=== PATIENT | male | born 1960 | race Caucasian/White ===

== ENCOUNTER 2023-09-23 07:06 | Inpatient (IN) | payer OTHER ==
[2023-09-23 07:38] VITALS: BMI 33.5
[2023-09-23 08:46] LABS: BASO % 0.7 % (0-2.0); EOS % 6.1 % (0-4.5); HEMATOCRIT 41.4 % (35.4-49); HEMOGLOBIN 14.6 GM/dL (11.7-16.9); INR 1.05 (0.83-1.09); LYMPH % 19.9 % (8-40); MCH 35.2 pg (25.7-33.7); MCHC 35.4 g/dl (32.0-35.9); MEAN CELL VOLUME 99.5 fl (80-96); MEAN PLT VOLUME 8.1 fl (7.5-11.1); MONO % 10.2 % (3.8-10.2); NEUT % 63.1 % (42.8-82.8); PLATELET COUNT 203 10^3/uL (134-434); PROTHROMBIN TIME (PATIENT) 12.2 SEC (9.7-13.0); RBC 4.16 M/mm3 (4.00-5.60); RDW 13.1 % (11.9-15.9); WHITE BLOOD COUNT 9.1 K/mm3 (4.0-10.0)
[2023-09-23 08:49] LABS: ACTIVATED PTT 28.6 SECONDS (25.2-36.5)
[2023-09-23 08:59] LABS: POTASSIUM 4.1 mmol/L (3.5-5.1)
[2023-09-23 09:01] LABS: ALBUMIN 3.9 g/dl (3.4-5.0); CALCIUM 9.3 mg/dL (8.5-10.1)
[2023-09-23 09:02] LABS: BLOOD UREA NITROGEN 25.5 mg/dL (7-18)
[2023-09-23 09:05] LABS: CREATININE 1.4 mg/dL (0.55-1.3)
[2023-09-23 09:06] LABS: BILIRUBIN,TOTAL 1.9 mg/dL (0.2-1); TOT PROT 7.5 g/dl (6.4-8.2)
[2023-09-23] MEDS: SODIUM CHLORIDE 0.9% 500 ML INFUS.BAG IV ONE (09:48)
[2023-09-23] MEDS ORDERED: ceFAZolin SODIUM 1 GM VIAL ONE (11:15)
[2023-09-23] MEDS: CEFAZOLIN 1 GM in DEXTROSE 5%-WATER - 50 ML IVPB SCH (11:35)
[2023-09-23] MEDS ORDERED: ACETAMINOPHEN 325 MG TABLET (FP) PO PRN (16:50)
[2023-09-23] MEDS: LACTULOSE 20 GM/30 ML UDC (FOR ORAL USE ONLY) PO SCH (21:13)
[2023-09-23] MEDS: GABAPENTIN 100 MG CAPSULE PO PRN (21:13)
[2023-09-23] MEDS: ALPRAZolam 1 MG TABLET PO PRN (21:14)
[2023-09-23] MEDS: ROSUVASTATIN CA 5 MG TABLET PO SCH (21:14)
[2023-09-23] MEDS: INSULIN ASPART SLIDING SCALE (NOVOLOG) 1 VIAL SQ SCH (21:21)
[2023-09-23] MEDS: PIPERACILLIN/TAZOB 2.25 GM 2.25 GM in DEXTROSE 5%-WATER - 50 ML IVPB SCH (21:21)
[2023-09-23] MEDS ORDERED: INSULIN (NOVOLOG) ASPART 100 UNITS/ML 10ML VIAL ONE (22:53)
[2023-09-23 23:01] LABS: EPI CELLS 2 /uL (0-25.1); HYALINE CASTS 0 /uL (0-3.1); PH,URINE 5.5 (5.0-8.0); URINE APPEARANCE CLEAR; URINE BACTERIA 1 /uL (0-1359); URINE BILIRUBIN NEGATIVE (NEGATIVE); URINE COLOR YELLOW; URINE GLUCOSE (UA) NEGATIVE (NEGATIVE); URINE KETONE NEGATIVE (NEGATIVE); URINE LEUK ESTERASE NEGATIVE (NEGATIVE); URINE NITRITE NEGATIVE (NEGATIVE); URINE PROTEIN NEGATIVE (NEGATIVE); URINE RBC 33 /uL (0-23.9); URINE UROBILINOGEN 0.2 mg/dL (0.2-1.0); URINE WBC 2 /uL (0-25.8)
[2023-09-24] MEDS ORDERED: INSULIN (NOVOLOG) ASPART 100 UNITS/ML 10ML VIAL ONE (05:35)
[2023-09-24 08:46] LABS: BASO % 0.4 % (0-2.0); EOS % 5.4 % (0-4.5); HEMATOCRIT 40.2 % (35.4-49); HEMOGLOBIN 13.8 GM/dL (11.7-16.9); LYMPH % 14.6 % (8-40); MCH 34.5 pg (25.7-33.7); MCHC 34.3 g/dl (32.0-35.9); MEAN CELL VOLUME 100.5 fl (80-96); MEAN PLT VOLUME 8.2 fl (7.5-11.1); MONO % 11.6 % (3.8-10.2); PLATELET COUNT 169 10^3/uL (134-434); RDW 13.4 % (11.9-15.9); WHITE BLOOD COUNT 8.4 K/mm3 (4.0-10.0)
[2023-09-24 09:03] LABS: POTASSIUM 4.2 mmol/L (3.5-5.1)
[2023-09-24] MEDS: NIFEdipine E.R. 90 MG TABLET PO SCH (09:04)
[2023-09-24] MEDS: LOSARTAN POTASSIUM 50 MG TABLET PO SCH (09:04)
[2023-09-24] MEDS: HYDROCHLOROTHIAZIDE 12.5 MG CAPSULE (FP) PO SCH (09:04)
[2023-09-24 09:07] LABS: CALCIUM 8.9 mg/dL (8.5-10.1)
[2023-09-24 09:08] LABS: ALBUMIN 3.4 g/dl (3.4-5.0); BLOOD UREA NITROGEN 23.2 mg/dL (7-18); MAGNESIUM 2.1 mg/dL (1.8-2.4)
[2023-09-24 09:10] LABS: PHOSPHOROUS 3.3 mg/dL (2.5-4.9)
[2023-09-24 09:11] LABS: CREATININE 1.4 mg/dL (0.55-1.3)
[2023-09-24 09:12] LABS: BILIRUBIN,TOTAL 1.6 mg/dL (0.2-1); TOT PROT 6.8 g/dl (6.4-8.2)
[2023-09-24] MEDS ORDERED: BUPIVACAINE HCL/PF 0.5% (5MG/ML) 10 ML VIAL ONE ×2 (09:45→10:28)
[2023-09-24] MEDS ORDERED: LIDOCAINE HCL 1%, 10 MG/ML (20ML VIAL) ONE (09:45)
[2023-09-24] MEDS ORDERED: PATIENT'S OWN MEDICATION (NON-FORMULARY) (Losartan/Hydrochlorothiazide [Losartan-Hctz 100- PO SCH (10:00)
[2023-09-24] MEDS ORDERED: MIDAZOLAM HCL 2 MG/2 ML SINGLE DOSE VIAL ONE ×2 (10:18→11:05)
[2023-09-24] MEDS ORDERED: FENTANYL CITRATE/PF 50 MCG/ML VIAL ONE (10:18)
[2023-09-24] MEDS ORDERED: PROPOFOL 20 ML ONE (10:18)
[2023-09-24] MEDS ORDERED: DEXAMETHASONE SOD PHOSPHATE 4 MG/1 ML VIAL ONE (10:27)
[2023-09-24] MEDS ORDERED: GENTAMICIN SO4 80 MG/2 ML VIAL ONE (10:27)
[2023-09-24] MEDS ORDERED: ONDANSETRON 4 MG/2 ML VIAL IVPUSH PRN ×2 (10:36→11:37)
[2023-09-24] MEDS ORDERED: LACTATED RINGERS SOLUTION 1,000 ML IV SCH (10:45)
[2023-09-24] MEDS: BUPIVACAINE HCL/PF 0.5% (5 MG/ML) 30 ML VIAL IJ ONE (10:49)
[2023-09-24] MEDS: LIDOCAINE HCL 1%, 10 MG/ML (20ML VIAL) INF ONE (10:53)
[2023-09-24] MEDS: LACTATED RINGERS SOLUTION 1,000 ML IV SCH (11:30)
[2023-09-24] MEDS: CEFTRIAXONE 2 GM in DEXTROSE 5%-WATER 100 ML IVPB SCH (13:34)
[2023-09-24] MEDS: INSULIN ASPART SLIDING SCALE (NOVOLOG) 1 VIAL SQ SCH (17:18)
[2023-09-24] MEDS ORDERED: PIPERACILLIN/TAZOB 2.25 GM 2.25 GM in DEXTROSE 5%-WATER - 50 ML IVPB SCH (18:00)
[2023-09-24] MEDS: ROSUVASTATIN CA 5 MG TABLET PO SCH (21:44)
[2023-09-24] MEDS: LACTULOSE 20 GM/30 ML UDC (FOR ORAL USE ONLY) PO SCH (21:44)
[2023-09-24] MEDS: ALPRAZolam 1 MG TABLET PO PRN (21:51)
[2023-09-24] MEDS: GABAPENTIN 100 MG CAPSULE PO PRN (21:51)
[2023-09-25] MEDS: ACETAMINOPHEN 325 MG TABLET (FP) PO PRN (05:57)
[2023-09-25] MEDS: NIFEdipine E.R. 90 MG TABLET PO SCH (09:24)
[2023-09-25] MEDS: LOSARTAN POTASSIUM 50 MG TABLET PO SCH (09:24)
[2023-09-25] MEDS: metoPROLOL SUCCINATE 25 MG TAB.SR.24H (FP) PO SCH (09:25)
[2023-09-25] MEDS: HYDROCHLOROTHIAZIDE 12.5 MG CAPSULE (FP) PO SCH (09:25)
[2023-09-25] MEDS ORDERED: INSULIN (NOVOLOG) ASPART 100 UNITS/ML 10ML VIAL ONE (20:59)
[2023-09-25] MEDS: BISMUTH SUBSALICYLATE 524 MG/30 ML PO ONE (21:09)
[2023-09-27 06:37] VITALS: RESP 18
[2023-09-27] MEDS ORDERED: INSULIN (NOVOLOG) ASPART 100 UNITS/ML 10ML VIAL ONE (11:34)
[2023-09-27 14:43] VITALS: BP 142/64; PULSE 73; TEMP 98
== END 2023-09-27 15:50 | disposition home or self-care (01) | DRG 617 ==
LOC: JER 07:06 → JERBED 09:13 → J8W 12:21
PROVIDERS: ADMIT Internal Medicine; ATTEND Internal Medicine
PROC: 0Y6S0Z3 Detachment at Left 2nd Toe, Low, Open Approach (ICD-10-PCS; principal; 2023-09-24 11:30)
DX: E11.69 Type 2 diabetes mellitus with other specified complication (principal); M86.8X7 Other osteomyelitis, ankle and foot; E11.51 Type 2 diabetes mellitus with diabetic peripheral angiopathy without gangrene; E11.40 Type 2 diabetes mellitus with diabetic neuropathy, unspecified; I10 Essential (primary) hypertension; E78.5 Hyperlipidemia, unspecified; K82.4 Cholesterolosis of gallbladder; E11.621 Type 2 diabetes mellitus with foot ulcer; R31.9 Hematuria, unspecified; E66.9 Obesity, unspecified; Z68.34 Body mass index [BMI] 34.0-34.9, adult
CPT/HCPCS: 36415; 73630-TC-LT; 76705-TC; 76775-TC; 76856-TC; 80053; 81003; 82570; 82962; 83036; 83735; 84100; 84156; 84484; 85025; 85610; 85651; 85730; 86140; 86850; 86900; 86901; 87070; 87075; 87205; 88305-TC; 88311-TC; 93005; 93010; 93306-TC; 94760; 99285-25; G0463-25

== ENCOUNTER 2024-05-25 10:50 | Emergency (ER) | payer OTHER ==
[2024-05-25 11:04] VITALS: RESP 18; TEMP 97.7; BMI 34.8
[2024-05-25 13:23] LABS: BASO % 0.6 % (0-2.0); EOS % 2.3 % (0-4.5); HEMATOCRIT 41.7 % (35.4-49); HEMOGLOBIN 14.1 GM/dL (11.7-16.9); MCH 33.6 pg (25.7-33.7); MCHC 33.8 g/dl (32.0-35.9); MEAN CELL VOLUME 99.4 fl (80-96); MEAN PLT VOLUME 8.7 fl (7.5-11.1); MONO % 9.5 % (3.8-10.2); NEUT % 73.6 % (42.8-82.8); PLATELET COUNT 174 10^3/uL (134-434); POTASSIUM 5.1 mmol/L (3.5-5.1); RBC 4.19 M/mm3 (4.00-5.60); WHITE BLOOD COUNT 9.6 K/mm3 (4.0-10.0)
[2024-05-25 13:25] LABS: CALCIUM 9.5 mg/dL (8.5-10.1)
[2024-05-25 13:26] LABS: ALBUMIN 3.8 g/dl (3.4-5.0); BLOOD UREA NITROGEN 20.4 mg/dL (7-18)
[2024-05-25 13:29] LABS: CREATININE 1.5 mg/dL (0.55-1.3)
[2024-05-25 13:30] LABS: BILIRUBIN,TOTAL 1.6 mg/dL (0.2-1); TOT PROT 7.6 g/dl (6.4-8.2)
[2024-05-25 16:05] VITALS: BP 183/84; PULSE 87
== END 2024-05-25 16:22 | disposition home or self-care (01) ==
LOC: JER 10:50
DX: S05.12XA Contusion of eyeball and orbital tissues, left eye, initial encounter (principal); R20.0 Anesthesia of skin; R04.0 Epistaxis; R55 Syncope and collapse; W01.0XXA Fall on same level from slipping, tripping and stumbling without subsequent striking against object, initial encounter
CPT/HCPCS: 36415; 70450-TC; 70486-TC; 71046-TC-FY; 72125-TC; 80053; 82550; 84484; 85025; 93005; 93010; 99285-25